=== PATIENT | male | born 2000 | race African-American/Black ===

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

== ENCOUNTER 2019-05-10 21:23 | Inpatient (IN) | payer OTHER ==
[~2019-05-10] VITALS: Ht 167.6 cm; Wt 79.7 kg
[2019-05-10 21:55] LABS: BASO % 0.3 % (0.0-1.0); EOS % 0.3 % (0.0-3.0); HEMATOCRIT 48.3 % (42.0-52.0); HEMOGLOBIN 16.3 g/dl (13.5-17.5); LYMPH # 1.6 10^3/uL (1.5-5.0); LYMPH % 18.7 % (24.0-44.0); MEAN CORPUSCULAR HEMOGLOBIN 29.7 pg (27.0-33.0); MEAN CORPUSCULAR HGB CONC 33.7 g/dl (32.0-36.5); MEAN CORPUSCULAR VOLUME 88.1 fl (80.0-96.0); MONO # 0.6 10^3/uL (0.0-0.8); MONO % 6.5 % (0.0-5.0); NEUTROPHILS # 6.4 10^3/uL (1.5-8.5); NEUTROPHILS % 73.9 % (36.0-66.0); PLATELET COUNT, AUTOMATED 223 10^3/uL (150-450); RED BLOOD COUNT 5.48 10^6/uL (4.30-6.10); WHITE BLOOD COUNT 8.6 10^3/uL (4.0-10.0)
[2019-05-10 22:28] LABS: ACETAMINOPHEN LEVEL 7.2 UG/ML (10.0-30.0); ALBUMIN 4.4 GM/DL (3.2-5.2); ALT/SGPT 33 U/L (12-78); BILIRUBIN,DIRECT 0.1 MG/DL (0.0-0.2); BILIRUBIN,TOTAL 0.3 MG/DL (0.2-1.0); BLOOD UREA NITROGEN 14 MG/DL (7-18); CALCIUM LEVEL 9.3 MG/DL (8.5-10.1); CARBON DIOXIDE LEVEL 32 MEQ/L (21-32); CHLORIDE LEVEL 101 MEQ/L (98-107); CPK CREATINE PHOSPHOKINASE 591 U/L (39-308); CREATININE FOR GFR 1.22 MG/DL (0.70-1.30); ETHYL ALCOHOL (ETHANOL) < 0.003 % (0.000-0.010); GLUCOSE, FASTING 137 MG/DL (70-100); POTASSIUM SERUM 3.8 MEQ/L (3.5-5.1); SALICYLATE LEVEL < 1.7 MG/DL (5.0-30.0); SODIUM LEVEL 141 MEQ/L (136-145); TOTAL PROTEIN 8.1 GM/DL (6.4-8.2)
[2019-05-10 23:12] LABS: AMPHETAMINES LEVEL URINE NEGATIVE (NEGATIVE); BARBITURATES URINE NEGATIVE (NEGATIVE); BENZODIAZEPINES URINE NEGATIVE (NEGATIVE); CANNABINOIDS URINE NEGATIVE (NEGATIVE); COCAINE METABOLITE URINE NEGATIVE (NEGATIVE); METHADONE URINE NEGATIVE (NEGATIVE); OPIATES URINE POSITIVE (NEGATIVE); PHENCYCLIDINE URINE NEGATIVE (NEGATIVE)
--- NOTE | 2019-05-11 01:11 | ECGEPIP ---
[facility] - ED Test Date: 2019-05-10 Pat Name: DEMARIO MERRITT Department: Room: - Gender: Male Floorperson: nurys : 2000 Requested By: Sesar Cross Order Number: [id number] Reading MD: Vladimir Millard Measurements Intervals [place] Rate: 53 P: MT: 0 QRS: 31 QRSD: 90 T: -8 QT: 381 QTc: 361 Interpretive Statements Sinus arrhythmia with bradycardia NONSPECIFIC T-WAVE ABNORMALITY Comparison tracing not on file Electronically Signed on 05-11-2019 1:11:10 EST by Vladimir Millard
[2019-05-11] MEDS ORDERED: ACETAMINOPHEN TAB 650MG DOSE (2X325MG) PO PRN (15:15)
[2019-05-11] MEDS ORDERED: MOM 30ML SUSPENSION UDC PO PRN (15:15)
[2019-05-11] MEDS ORDERED: traZODone 50 MG TAB PO PRN (15:15)
[2019-05-11] MEDS ORDERED: MAALOX 30 ML SUSP *UDC PO PRN (15:15)
[2019-05-11 16:13] VITALS: BP 120/80
[2019-05-12 07:03] VITALS: BP 132/68
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
[2019-05-12 16:12] VITALS: BP 132/70
[2019-05-13 06:35] VITALS: BP 122/92
--- NOTE | 2019-05-13 12:04 | MHIPNPDOC ---
[facility] Progress Note Vital Signs Vital Signs Date Time Temp Pulse Resp B/P (MAP) Pulse Ox O2 Delivery O2 Flow Rate FiO2 05/13/19 06:35 98.6 88 16 122/92 (102) Room Air 05/11/19 16:13 100 Current Medications Current Medications Medications (Trade) Dose Ordered Sig/Prasanth Route PRN Reason Start Time Stop Time Status Last Admin Dose Admin Acetaminophen (Tylenol Tab) 650 mg Q6HP PRN PO HEADACHE or DISCOMFORT 05/11/19 15:15 Al Hydrox/Mg Hydrox/Simethicone (Mylanta) 30 ml Q4HP PRN PO HEARTBURN/INDIGESTION 05/11/19 15:15 Home Med (Med Rec Complete!) ASDIRECTED XX 05/11/19 08:30 05/11/19 08:29 DC Magnesium Hydroxide (Milk Of Magnesia) 30 ml DAILYPRN PRN PO CONSTIPATION 05/11/19 15:15 Trazodone HCl (Desyrel) 50 mg QHSP PRN PO INSOMNIA 05/11/19 15:15 Allergies Coded Allergies: No Known Allergies (Unverified , 05/10/19) ANTONIA CHO DO May 13, 2019 12:04
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
[2019-05-13 16:42] VITALS: BP 131/80
[2019-05-14 06:12] VITALS: BP 118/78
== END 2019-05-14 08:30 | disposition home or self-care (01) | DRG 882 ==
LOC: M ED 21:23 → M ED INP 05-11 15:04 → M PSY 05-11 15:50
PROVIDERS: ADMIT Psychiatry & Neurology Psychiatry; ATTEND Psychiatry & Neurology Addiction Medicine
DX: F43.20 Adjustment disorder, unspecified (principal); F60.89 Other specific personality disorders

== ENCOUNTER 2020-06-24 15:11 | Emergency (ER) | payer OTHER ==
[~2020-06-24] VITALS: Ht 167.6 cm; Wt 91.1 kg
[2020-06-24 15:11] VITALS: BP 141/88
--- OUTSIDE RECORDS SUMMARY | 2020-06-24 15:18 | CCD ---
Author Author [facility] Organization [facility] Address Unknown Phone Unavailable Care Team Providers Care [place] Name Role Phone Skylar, D Angelo CONCRETE CURER Unavailable Unavailable Skylar, D Angelo CONCRETE CURER Unavailable Unavailable Skylar, D Angelo CONCRETE CURER Unavailable Unavailable Skylar, D Angelo CONCRETE CURER Unavailable Unavailable Skylar, D Angelo CONCRETE CURER Unavailable Unavailable Skylar, D Angelo CONCRETE CURER Unavailable Unavailable Skylar, D Angelo CONCRETE CURER Unavailable Unavailable Skylar, D Angelo CONCRETE CURER Unavailable Unavailable Skylar, D Angelo CONCRETE CURER Unavailable Unavailable Skylar, D Angelo CONCRETE CURER Unavailable Unavailable Skylar, D Angelo CONCRETE CURER Unavailable Unavailable Skylar, D Angelo CONCRETE CURER Unavailable Unavailable Skylar, D Angelo CONCRETE CURER Unavailable Unavailable Skylar, D Angelo CONCRETE CURER Unavailable Unavailable Skylar, D Angelo CONCRETE CURER Unavailable Unavailable Skylar, D Angelo CONCRETE CURER Unavailable Unavailable Skylar, D Angelo CONCRETE CURER Unavailable Unavailable Skylar, D Angelo CONCRETE CURER Unavailable Unavailable Skylar, D Angelo CONCRETE CURER Unavailable Unavailable Skylar, D Angelo CONCRETE CURER Unavailable Unavailable Skylar, D Angelo CONCRETE CURER Unavailable Unavailable Skylar, D Angelo CONCRETE CURER Unavailable Unavailable Skylar, D Angelo CONCRETE CURER Unavailable Unavailable Skylar, D Angelo CONCRETE CURER Unavailable Unavailable Skylar, D Angelo CONCRETE CURER Unavailable Unavailable Skylar, D Angelo CONCRETE CURER Unavailable Unavailable Skylar, D Angelo CONCRETE CURER Unavailable Unavailable Skylar, D Angelo CONCRETE CURER Unavailable Unavailable Skylar, D Angelo CONCRETE CURER Unavailable Unavailable Skylar, D Angelo CONCRETE CURER Unavailable Unavailable Skylar, D Angelo CONCRETE CURER Unavailable Unavailable Skylar, D Angelo CONCRETE CURER Unavailable Unavailable Skylar, D Angelo CONCRETE CURER Unavailable Unavailable Skylar, D Angelo CONCRETE CURER Unavailable Unavailable Skylar, D Angelo CONCRETE CURER Unavailable Unavailable Gutierrez, J Chris PA-C Unavailable Unavailable Gutierrez, J Chris PA-C Unavailable Unavailable Gutierrez, J Chris PA-C Unavailable Unavailable Gutierrez, J Chris PA-C Unavailable Unavailable Gutierrez, J Chris PA-C Unavailable Unavailable Gutierrez, J Chris PA-C Unavailable Unavailable Gutierrez, J Chris PA-C Unavailable Unavailable Gutierrez, J Chris PA-C Unavailable Unavailable Gutierrez, J Chris PA-C Unavailable Unavailable Gutierrez, J Chris PA-C Unavailable Unavailable Gutierrez, J Chris PA-C Unavailable Unavailable PARNES Z LOC Unavailable Unavailable PARNESLachelle LOC Unavailable Unavailable [facility]ARNES [facility] LOC Unavailable Unavailable [facility]ES [facility] LOC Unavailable Unavailable PARNES Z LOC Unavailable Unavailable PARNES Z LOC Unavailable Unavailable PARNES Z LOC Unavailable Unavailable PARNES Z LOC Unavailable Unavailable PARNES Z LOC Unavailable Unavailable PARNES Z LOC Unavailable Unavailable PARNES Z LOC Unavailable Unavailable PARNES Z LOC Unavailable Unavailable PARNES Z LOC Unavailable Unavailable PARNES Z LOC Unavailable Unavailable PARNES Z LOC Unavailable Unavailable PARNES Z LOC Unavailable Unavailable PARNES Z LOC Unavailable Unavailable PARNES Z LOC Unavailable Unavailable PARNES Z LOC Unavailable Unavailable PARNES Z LOC Unavailable Unavailable PARNES Z LOC Unavailable Unavailable PARNES Z LOC Unavailable Unavailable PARNES Z LOC Unavailable Unavailable PARNES Z LOC Unavailable Unavailable PARNES Z LOC Unavailable Unavailable PARNES Z LOC Unavailable Unavailable PARNES Z LOC Unavailable Unavailable PARNES Z LOC Unavailable Unavailable PARNES Z LOC Unavailable Unavailable PARNES Z LOC Unavailable Unavailable PARNES Z LOC Unavailable Unavailable PARNES Z LOC Unavailable Unavailable PARNES Z LOC Unavailable Unavailable PARNES Z LOC Unavailable Unavailable PARNES Z LOC Unavailable Unavailable PARNES Z LOC Unavailable Unavailable PARNES Z LOC Unavailable Unavailable [facility]ES [facility] LOC Unavailable Unavailable Ioana KATHLEEN MD Unavailable Unavailable Ioana KATHLEEN MD Unavailable Unavailable Ioana KATHLEEN MD Unavailable Unavailable Ioana KATHLEEN MD Unavailable Unavailable Ioana KATHLEEN MD Unavailable Unavailable FRANNIE, L CIRO MD Unavailable Unavailable FRANNIE, L CIRO MD Unavailable Unavailable FRANNIE, L CIRO MD Unavailable Unavailable FRANNIE, L CIRO MD Unavailable Unavailable FRANNIE, L CIRO MD Unavailable Unavailable FRANNIE, L CIRO MD Unavailable Unavailable FRANNIE, L CIRO MD Unavailable Unavailable FRANNIE, L CIRO MD Unavailable Unavailable FRANNIE, L CIRO MD Unavailable Unavailable FRANNIE, L CIRO MD Unavailable Unavailable FRANNIE, L CIRO MD Unavailable Unavailable FRANNIE, L CIRO MD Unavailable Unavailable FRANNIE, L CIRO MD Unavailable Unavailable FRANNIE, L CIRO MD Unavailable Unavailable FRANNIE, L CIRO MD Unavailable Unavailable FRANNIE, L CIRO MD Unavailable Unavailable FRANNIE, L CIRO MD Unavailable Unavailable FRANNIE, L CIRO MD Unavailable Unavailable Re-disclosure Warning The records that you are about to access may contain information from federally-assisted alcohol or drug abuse programs. If such information is present, then the following federally mandated warning applies: This information has been disclosed to you from records protected by federal confidentiality rules (42 CFR part 2). The federal rules prohibit you from making any further disclosure of this information unless further disclosure is expressly permitted by the written consent of the person to whom it pertains or as otherwise permitted by 42 CFR part 2. A general authorization for the release of medical or other information is NOT sufficient for this purpose. The Federal rules restrict any use of the information to criminally investigate or prosecute any alcohol or drug abuse patient.The records that you are about to access may contain highly sensitive health information, the redisclosure of which is protected by Article 27-F of the [place] Public [employer] law. If you continue you may have access to information: Regarding HIV / AIDS; Provided by facilities licensed or operated by the [place] Office of Mental Health; or Provided by the [place] Office for People With Developmental Disabilities. If such information is present, then the following [place] mandated warning applies: This information has been disclosed to you from confidential records which are protected by state law. State law prohibits you from making any further disclosure of this information without the specific written consent of the person to whom it pertains, or as otherwise permitted by law. Any unauthorized further disclosure in violation of state law may result in a fine or intermediate sentence or both. A general authorization for the release of medical or other information is NOT sufficient authorization for further disc losure. Allergies and Adverse Reactions Type Description Substance Reaction Status Data Source(s ) No Known Drug Allergies No Known Drug Allergies [facility] No Known Environmental Allergies No Known [facility] SHRIMP SHRIMP SWELLING [facility] Family History Family Member Name Family Member Gender Family Member Status Date o f Status Description Data Source(s) Unknown Male Problem [facility] ([facility]) Encounters Encounter Providers Location Date Indications Data Source(s ) Emergency Attender: Chris Whitley PA-C 07:34:18 AM EST - 06/23/2020 08:33:00 AM [facility] Patient discharged. Outpatient Attender: LOC JORDAN MD 020 12:53:09 PM EDT - 12/03/2019 06:00:00 AM EDT [facility] Patient discharged. Emergency Attender: CIRO KATHLEEN MD 2019 01:12:00 PM EDT - 10/31/2019 02:15:00 PM EDT [facility] Patient discharged. Outpatient Attender: Angelo Cheng NPAttender: LOC Canas 06/30/2019 02:45:00 PM [facility] - 06/30/2019 02:45:00 PM [facility] Insurance Providers Payer name Policy type / Coverage type Policy ID Covered alliance party ID Covered alliance party's relationship to santso Policy Santos Plan Information [facility] [employer] [id number] SP [id number] [facility] [employer] [place] [id number] 18 [id number] [place] [id number] 18 [id number] [facility] [id number] SP [id number] [facility] [id number] [facility] [id number] [facility] [id number] Self [id number] Problems, Conditions, and Diagnoses Code Display Name Description Problem Type Effective Dates Data Source(s) G4489 Other headache syndrome Other headache syndrome Diagno sis 12/02/2019 08:30:00 PM EDT [facility] G4761 Periodic limb movement disorder Periodic limb movement disorder Diagnosis 12/02/2019 08:30:00 PM EDT [facility] R0683 Snoring Snoring Diagnosis 12/02/2019 08:30:00 PM ED T [facility] R400 Somnolence Somnolence Diagnosis 12/02/2019 08:30:00 PM ED T [facility] K10145 Unspecified place in unspeci fied non-institutional (private) residence as the place of occurrence of the external cause Unspecified place in unspecified non-institutional (private) residence as the place of occurrence of the external cause Diagnosis 10/31/2019 01:12:00 PM EDT [facility] [id number] Overexertion from prolonged static or awkward postures, initial encounter Overexertion from prolonged static or aw kward postures, initial encounter Diagnosis 10/31/2019 01:12:00 PM EDT [facility] [id number] Sprain of tibiofibular ligament of left ankle, initial encounter Sprain of tibiofibular ligament of left ankle, initial encounter Diagnosis 10/31/2019 01:12:00 PM EDT [facility] [id number] Sprain of unspecified ligament of right ankle, initial encounter Sprain of unspecified ligament of right ankle, initial encounter Diagnosis 10/31/2019 01:12:00 PM EDT [facility] [id number] Unspecified injury of right ankle, initi al encounter Unspecified injury of right ankle, initial encounter Diagnosis 10/31/2019 01:12:00 PM EDT [facility] Z4789 Encounter for other orthopedic aftercare Encounter for other orthopedic aftercare Diagnosis 06/30/2019 02:45:00 PM EST [facility] Results ID Date Data Source [id number] 11/02/2019 08:55:00 AM EDT [facility] [address] [place] [address] PHONE: [phone] FAX: [phone] Name .................. : RENÉ Jensen Acct Number.................. : [id number] ROOM. ................. : TR-1A MR Number ................... : [id number] Stay type ............. : E/R Discharge Date......... ... : 10/31/19 Admit Date ....... .. : 10/31/19 Admit Phys .................... : COONEYNORM Date of ....... : 2000 Family Phys ................... : UNKNOWN Phone .................. : [phone] Age ................................ : 19 Film# .................. .:[id number] Sex ................................. : M Unsigned transcriptions are preliminary reports and do not represent a medical or legal document ANKLE COMPLETE RT [id number] COMPLETE:10/31/19 14:12 KBO [id number] Reason(s): Pain RIGHT ANKLE X-RAY: 4-VIEWS INDICATION: Pain. FINDINGS: Routine views show no fracture or dislocation. The right ankle mortise is normally maintained and the articular surfaces are smooth. The soft tissues are unremarkable. IMPRESSION: Negative right ankle. Electronically Reviewed and Signed By Steve Reynoso MD , 11/02/19 08:55, SHARATH Transcribe Initials: ADDIE , Transcribe Date: 10/31/19 16:33, Dictation Date: Copy for: GABRIEL SOLIS via fax Copy for: EMERGENCY DEPT via modem Copy for: 710 MED REC DISCHARGED Page 1 of 1 Name Value Range Interpretation Code Description Data Jasmin rce(s) Supporting Document(s) ID Date Data Source [id number] 10/31/2019 01:12:00 PM EDT [facility] 1 OrderSheet [facility] Emergency Department [address] [place] [address] Phone #: ext- [phone] 10/31/2019 13:07 Patient: DEMARIO MERRITT Sex: M : 2000 Age: 19yWEIGHT:86.1 kg (S) HEIGHT:67 inches (S) BMI:29.8ALLERGIES: Shellfish- derived ProductsCHIEF COMPLAINT: Rt, ankleDIAGNOSIS: Sprain of jointLAB ORDERSOrder Description Priority Entered Acknowledged InitialedDIAGNOSTIC STUDY ORDERSOrder Description Priority Entered Acknowledged InitialedAnkle Complete STAT 13:28 10/31/2019 Ack'd: 13:38 13:58 Right Amandeep Guzman Jennifer Jennifer R.N.(Oxygen?(No)) PA; R.N. Reason for Study: Pain, Trauma/InjuryMEDICATION/IV/DRIP/FLUID ORDERSOrder Description Priority Entered Acknowledged InitialedIbuprofen 800 mg 13:28 10/31/2019 13:38 Thomas,PO X1 dose: 800 Amandeep Lizama R.N.mg (NOW x1) PA;GENERAL ORDERSOrder Description Priority Entered Acknowledged InitialedSplint (Aircast) R 14:10 10/31/2019 14:19 Joy Guzman R.N. PA;Crutches 14:10 10/31/2019 Cancelled: Physician Order 14:20 Alda Mehta R.N. PA;[Electronically signed by Alda Guzman R.N. (14:21 10/31/2019)][Electronically signed by Amandeep Herrera (21:28 10/31/2019)][Electronically locked by Alda Guzman R.N. (14:21 10/31/2019)] Name Value Range Interpretation Code Description Data Jasmin rce(s) Supporting Document(s) ID Date Data Source [id number] 10/31/2019 01:12:00 PM EDT [facility] 1 Medication Reconciliation Report [facility] Emergency Department [address] [place] [address] Phone #: ext- [phone] 10/31/2019 13:07 Patient: DEMARIO MERRITT Sex: M : 2000 Age: 19yWeight: 86.1 kgHeight/Length: 67 in.BMI: 29.8ALLERGIES: Shellfish-derived ProductsThe patient's Home Medications are listed below:NONE.The source(s) of the original Home Medication information:Not obtained.The following Medications were given to the patient in the Emergency Department:Ibuprofen [PO] PO 800 mg, administered: 10/31/2019 1:38:00 PMThe following Medications were prescribed to the patient:None. Name Value Range Interpretation Code Description Data Jasmin rce(s) Supporting Document(s) ID Date Data Source [id number] 10/31/2019 01:12:00 PM EDT [facility] 1 Medication Administration Record [facility] Emergency Department [address] [place] [address] Phone #: ext- [phone] 10/31/2019 13:07 Patient: DEMARIO MERRITT Sex: M : 2000 Age: 19yWeight: 86.1 kgHeight/Length: 67 inBMI: 29.8ALLERGIES: Shellfish-derived Products Date/Time Medication Administered Medication OrderedGiven IBUPROFEN [PO] Ibuprofen 800 mg PO X1 dose: 72371:38 10/31/2019 Dose: 800 mg Tablets PO mg (NOW x1)Alda Guzman R.N. Name Value Range Interpretation Code Description Data Jasmin rce(s) Supporting Document(s) ID Date Data Source [id number] 10/31/2019 01:12:00 PM EDT [facility] 1 General Instructions [facility] Emergency Department [address] [place] [address] Phone #: ext [phone] 10/31/2019 13:07 Patient: DEMARIO MERRITT Sex: M : 2000 Age: 19ySprain of the anterior and posterior talo-fibular ligament of the right ankle.INSTRUCTIONSUse crutches for three days until better. Wear air splint for two weeks until better.(Take 800mg of Ibuprofen three times per day for pain relief.).Your Current Medications: .No home me dication.Follow-up:Follow up with your doctor Saturday. Reason for referral: evaluation and treatment. Summary of careprovided to patient.Understanding of the discharge instructions verbalized by patient. ADDITIONAL INFORMATIONAnkle Sprain (Adult)An ankle sprain is a stretching or tearing of the ligaments that hold the ankle joint together. There are 2 General Instructions [facility] Emergency Department [address] [place] [address] Phone #: ext [phone] 10/31/2019 13:07 Patient: DEMARIO MERRITT Sex: M : 2000 Age: 19yno broken bones.An ankle sprain is a common injury for both children and adults. It happens when the ankle turns,twists, or rolls in an awkward way. This can be caused by a sports injury. Or it can happen from doingsomething as simple as stepping on an uneven surface.Ligaments are made of tough connective tissue. Normally, ligaments stretch a certain amount andthen go back to their normal place. A sprain happens when a ligament is forced to stretch more thanthe normal amount. A severe sprain can actually tear the ligaments. If you have a severe sprain, youmay have felt or heard something like a pop when you were injured.Ankle sprains are given a grade depending on whether they are mild, moderate, or severe: Grade 1 sprain. A mild sprain with minor stretching and damage to the ligament. Grade 2 sprain. A moderate sprain where the ligament is partly torn. Grade 3 sprain. The most severe kind of sprain. The ligament is completely torn.Most sprains take about 4 to 6 weeks to heal. A severe sprain can take several months to recover.Your healthcare provider may order X-rays to be sure you don't have a fracture, or broken bone.The injured area will feel sore. Swelling and pain may make it hard to walk. You may need crutches ifwalking is painful. Or your provider may have you use a cast boot or air s plint. This will depend on thegrade of ankle sprain that you have.Home care For a Grade 1 sprain, use RICE (rest, ice, compression, and elevation): Rest your ankle. Don't walk on it. Ice should be used right away to help control swelling. Place an ice pack over the injured area for 20 minutes. Do this every 3 to 6 hours for the first 24 to 48 hours. Keep using ice packs to ease pain and swelling as needed. To make an ice pack, put ice cubes in a plastic bag that seals at the top. Wrap the bag in a clean, thin towel or cloth. Never put ice or an ice pack directly on the skin. The ice pack can be put right on the cast, bandage, or splint. As the ice melts, be careful that the cast, bandage, or splint doesn't get wet. If you have a boot, open it to apply an ice pack, unless told otherwise by your provider. Compression devices help to control swelling. They also keep the ankle from moving and support your injured ankle. These devices include dressings, bandages, and w raps. Elevate or raise your ankle above the level of your heart when sitting or lying down. This is very important for the first 48 hours. 3 General Instructions [facility] Emergency Department [address] [place] [address] Phone #: ext- [phone] 10/31/2019 13:07 [id number] Sex: M : 2000 Age: 19y Follow the RICE guidelines for a Grade 2 sprain. This type of sprain will take longer to heal. Your provider may have you wear a splint, cast, or brace to keep your ankle from moving. If you have a Grade 3 sprain, you are at risk for long-term ankle instability. In rare cases, surgery may be needed. Your provider may have you wear a short leg cast or a walking boot for 2 to 3 weeks. After 48 hours, it may be helpful to apply heat for 20 minutes several times a day. You can do this with a heating pad or warm compress. Or you may want to go back and forth between using ice and heat. Never apply heat directly to the skin. Always wrap the heating pad or warm compress in a clean, thin towel or cloth. You may use [id number] pain medicine (NSAIDS or nonsteroidal anti-inflammatory drugs) to control pain, unless another pain medicine was prescribed. Talk with your provider before using these medicines if you have chronic liver or kidney disease, or have ever had a stomach ulcer or gastrointestinal bleeding. Follow any rehabilitation exercises your provider gives you. These can help you be more flexible and improve your balance and coordination. This is helpful in preventing long-term ankle problems.PreventionTo help prevent ankle sprains, it's important to have good strength, balance, and flexibility. Be sureto: Always warm up before you exercise or do something very active Be careful when walking or running on uneven or cracked surfaces Wear shoes that are in good condition and fit well Listen to your body's signals to slow down when you are in pain or tiredFollow-up careAny X-rays you had today don't show any broken bones, breaks, or fractures. Sometimes fracturesdon't show up on the first X-ray. Bruises and sprains can sometimes hurt as much as a fracture.These injuries can take time to heal completely. If your symptoms don't get better or they get worse,talk with your healthcare provider. You may need a repeat X-ray.Follow up with your healthcare provider, or as advised. Check for any warning signs listed below.When to seek medical adviceCall your healthcare provider right away if any of these occur: 4 General Instructions [facility] Emergency Department [address] [place] [address] Phone #: ext- [phone] 10/31/2019 13:07 Patient: DEMARIO MERRITT Sex: M : 2000 Age: 19y Fever of 100.4 F (38 C) or higher, or as directed by your healthcare provider Chills The injury doesn't seem to be healing The swelling comes back The cast or splint has a bad smell The plaster cast or splint gets wet or soft The fiberglass cast or splint gets wet and does not dry for 24 hours The pain or swelling increases, or redness appears Your toes become cold, blue, numb, or tingly The skin is discolored (looks blue, purple, or gill), has blisters, or is irritated You re-injure your ankle [id number] [employer] [address] [place] [address], [place] [address]. All rights reserved. This information is not intended as asubstitute for professional medical care. Always follow your healthcare professional's instructions.Crutch WalkingCrutch adjustment 5 General Instructions [facility] Emergency Department [address] [place] [address] Phone #: ext- [phone] 10/31/2019 13:07 Patient: DEMARIO MERRITT Sex: M : 2000 Age: 19y Make sure the crutches you use are adjusted to fit you. When you stand,there should be room to fit 2 to 3 fingers between the top of the crutch and your armpit. Your elbowshould be slightly bent when holding the hand navy material inspector. When your arms hang down, the crutch handleshould be at the top of your hip.Crutch walkingPlace the crutches forward about 1 foot in front of you. The crutches should be a little farther apartthan your body. Lean your weight forward as you push down on the hand navy material inspector. Make sure yourweight is on your hands and your strong leg, not your armpits. Let your body swing forward, landingon the strong leg. Move the crutches forward again. The crutch and your injured leg should movetogether.Going up steps with no handrails(Up with the good leg) With both crutches (under each armpit) on the same step as your feet, push down on the hand navy material inspector. 6 General Instructions [facility] Emergency Department [address] [place] [address] Phone #: ext- [phone] 10/31/2019 13:07 Patient: DEMARIO MERRITT Sex: M : 2000 Age: 19y Balancing with very light pressure on the weak leg, let your hands support your weight. Raise your strong leg onto the next higher step. Transfer all your weight to your strong leg (still bent). Move the crutches up to the next step, next to your strong leg. Keep your weight evenly balanced on the two crutches and your strong leg. Straighten your strong knee as you raise your weak leg up to the next step.Going down steps with no handrails(Down with the bad leg) With both crutches (under each armpit) on the same step as your feet, push down on the hand navy material inspector. Keep your weight evenly balanced on the two crutches and your strong leg. Bend your strong knee as you lower your weak leg down to the next step. Let your strong leg s upport you (still bent) as you move the crutches down next to the weak leg. Transfer your weight to your hands. Balance with very light pressure on your weak leg as you lower your strong leg next to your weak legGoing up steps with handrails(Up with the good leg) Face the stairs, holding the handrail with one hand. Place both crutches under your armpit on the opposite side. 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 Balancing with very light pressure on the weak leg, let your hands support your weight. Raise your strong leg onto the next higher step. Transfer all your weight to your strong leg (still bent) as you move the crutches up (while holding on to the handrail) to the next step next to the strong leg. Keep your weight evenly balanced on the handrail, the crutches (still under the same armpit opposite the handrail), and your strong leg. Straighten your strong knee as you raise the weak leg up to the next step.Going down steps with handrails(Down with the bad leg) Face the stairs, holding the handrail with one hand. Place both crutches under your armpit on 7 General Instructions [facility] Emergency Department [address] [place] [address] Phone #: ext- [phone] 10/31/2019 13:07 Patient: DEMARIO MERRITT Sex: M : 2000 Age: 19y the opposite side. 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 Balance your weight evenly on the crutches, handrail, and your strong leg. Then bend your strong knee as you lower the weak leg down to the next step. Let the handrail and your strong leg support you (still bent) as you move the crutches down alongside the weak leg. While holding on to the handrail and crutches (under the same armpit on the other side), transfer your weight to your hands, balancing with very light pressure on the weak leg as you lower your strong leg alongside your weak legTip: If you are worried about falling or you feel unsteady, try sitting when going up or down stairsinstead. Sit on the bottom step and keep your injured leg out in front of you. Hold your crutches flatagainst the stairs. Then slide up to the next step on your bottom. Use your free hand and good leg forsupport. Face the same way when going down stairs. 7675-4278 [employer] [address] [place] [address]. All rights reserved. This information is not intended as asubstitute for professional medical care. Always follow your healthcare professional's instructions.Splints and CastsSplints and casts are used to help support and protect many bone and soft tissue injuries. They keepan injured area from moving.Both splints and casts can help fix broken bones and other injuries or conditions by: Increasing blood supply to the injured area Limiting movement to help decrease pain Keeping the area stable to help prevent further injury Decreasing swelling or muscle spasmSplints don't fully enclose an injured area. This makes them ideal to use for many acute or suddeninjuries where swelling is likely to occur. This includes acute fractures or sprains. Splints help to easepain, protect fractures, and keep an injured area from moving before any orthopedic treatment isdone.Casts fully enclose an injured area in either plaster or fiberglass. Because of this, they are better ableto keep the injured area still and hold it in place. But casts can also have more problems.For the best results, both casts and splints are mainly used only for a short time. That's becausekeeping an area still for too long can cause problems such as joint stiffness and long-lasting (chronic)pain. If you are put in a splint or cast, you must be watched closely to be sure you recover correctly. 8 General Instructions [facility] Emergency Department [address] [place] [address] Phone #: ext- [phone] 10/31/2019 13:07 Patient: DEMARIO MERRITT Sex: M : 2000 Age: 19yThere are many different kinds of splints and casts. Your healthcare provider will decide which is bestfor you. This will depend on the area of your body that is being treated. It will also depend on thestage of your injury, as well as how severe and how stable it is. Each type of splint and cast is bestsuited for certain conditions. There are also different ways of applying splints and casts.Home care Follow your healthcare provider's instructions when using the splint or cast. Always ask when the splint or cast must be worn. Always ask when the splint or cast can be removed. Check the splint or cast each day, and as needed, for any loose objects. Check the splint or cast for defects such as nicks or tears. Follow the rock crusher's or provider's instructions on how to clean the splint or cast. It may have fabric areas that can be washed. If the splint or cast has straps, tighten the straps if they get loose. The straps should feel firm and secure, but not too tight. The splint or cast should feel comfortable. Your toes should wiggle freely. The provider may also use an elastic bandage. Follow the provider's instructions on how to use the elastic bandage. Always ask when to use the elastic bandage with, or without, the splint or cast. Always ask when the elastic bandage needs to be worn. Always ask when the elastic bandage needs to be removed. Check how the injured area is healing. Always check the skin around the injury for irritation or damage caused by the splint or cast. Call your provider if you notice any problems or have any concerns. If you have any questions on how to use the splint or cast, contact your provider.Follow-up careFollow up as advised with your healthcare provider. Depending on the injury, you may need to see anorthopedic or bone doctor. You may also need physical therapy to further check or treat your injury orcondition.When to seek medical adviceCall your healthcare provider right away if any of these occur: You have more pain, swelling, or instability when wearing the splint or cast. Your injured area has skin that changes color (to red, blue, or purple), sores, blisters, infection, or irritation. 9 General Instructions [facility] Emergency Department [address] [place] [address] Phone #: koi- [phone] 10/31/2019 13:07 Patient: DEMARIO MERRITT Sex: M : 2000 Age: 19y The injured region feels cool to the touch. Or you have a numb and tingly feeling when wearing the splint or cast. The splint or cast does not fit correctly. You can't put weight on the injured area when wearing the splint or cast if you are allowed to do so. You have questions about using the splint or cast. The splint or cast gets wet. 4717-5[address] [employer] [address] [place] [address], [place] [address]. All rights reserved. This information is not intended as asubstitute for professional medical care. Always follow your healthcare professional's instructions. You have been given the following additional information: Ankle Sprain (Adult) Crutch Walking Splints and Casts(Electronically signed by CHELSEA Raymond 10/31/2019 21:28) Name Value Range Interpretation Code Description Data Jasmin rce(s) Supporting Document(s) ID Date Data Source [id number] 10/31/2019 01:12:00 PM EDT [facility] 1 Clinical Report - Nurses [facility] Emergency Department [address] [place] [address] Phone #: ext- [phone] 10/31/2019 13:07 Patient: DEMARIO MERRITT Sex: M : 2000 Age: 19yTRIAGEHistorian: patient.Triage time: 13:11 10/31/2019. Acuity: LEVEL 4.Chief Complaint: RIGHT LOWER EXTREMITY PAIN.Alert. No acute distress.( pt states he was walking down steps today, missed one and landed on the next step down and felt a pop.pt c/o pain with weight bearing.).SEPSIS SCREEN: Sepsis Screen negative. No suspected or confirmed signs of infection present. --13:146 Jyoti August, R.N.13:11 10/31/19. BP: 137/67. MAP: 90. HR: 76. RR: 18. O2 saturation: 96%. Temp: 98.1 F (oral). Painlevel now: 09/03. --13:14 10/31/19 Jyoti, August, R.N.Weight: 86.1 kg stated. Height/Length: 67 inches Per Patient. BMI: 29.8. --13:09 10/31/19 Jyoti, August, R.N.MedicationsNone. --13: 11 10/31/19August, R.N.AllergiesShellfish-derived Products. --13:11 10/31/19 Jenyaugust, R.N.PROBLEMS:no known problems.ADDITIONAL SURGERIES:Shoulder Surgery (Rajat). --13:12 10/31/19 Jyoti August, R.N.HistorySOCIAL HX: Never smoker. No alcohol use or drug use. He was offered HIV testing but declined. Hehas not traveled outside the [place]Infectious disease exposure: No infectious disease exposure. (covid screen neg). Patient is not a knowncarrier of tuberculosis, hepatitis, HIV, MRSA or VRE. Patient is not a known carrier of CRE.SELF HARM ASSESSMENT: Self harm assessment was performed. The patient answered "no" to thequestion(s) "Have you recently felt down, depressed, or hopeless?", "Do you have thoughts of harming orkilling yourself?", "Do you have a plan for harming or killing yourself?", "Have you recently had thoughtsabout harming or killing others?", "Do you have any dangerous items in your possession?", "Have younoticed less interest or pleasure in doing things?", "Are you here because you tried to hurt yourself?" and 2 Clinical Report - Nurses [facility] Emergency Department [address] [place] [address] Phone #: ext- [phone] 10/31/2019 13:07 Patient: DEMARIO MERRITT Sex: M : 2000 Age: 19y "Have you ever tried to hurt yourself before today?". ABUSE ASSESSMENT: Abuse assessment. yes. The patient had positive responses to the question(s) "Do you feel safe in your home?". No report of abuse. NUTRITIONAL RISK ASSESSMENT: The nutritional risk assessment revealed no deficiencies. FUNCTIONAL ASSESSMENT: Functional assessment: no impairments noted. LEARNING NEEDS ASSESSMENT: The learning needs assessment revealed no barriers. FALL RISK ASSESSMENT: Fall risk assessment completed. No risk factors identified. SKIN INTEGRITY ASSESSMENT: Skin integrity risk assessment completed. No skin integrity risk identified. --13:14 10/31/19 Claudine Montes, R.N. Interventions To treatment room. --13:14 10/31/19 Claudine Montes, R.N.PHYSICAL ASSESSMENTTo room via wheelchair.GENERAL / NEURO / PSYCH: Oriented X 4. Alert. Appears in no acute distress.EXTREMITIES: Limited ROM present. Extremity pulses are within normal limits. Abnormal gait.Neuro- vascular status intact to the extremity. No lower extremity edema. Right ankle: tenderness.Limited ROM secondary to pain (diminished plantar flexion and dorsiflexion).SKIN: Skin intact. Skin is warm and dry. --13:24 10/31/19 Alda Guzman R.N.NURSING PROGRESS NOTESCold pack applied. Reassurance given. Two patient identifiers checked. Bed placed in lowest position.Brakes of bed on. Patient ready for evaluation- ED physician and PA notified. ( no meds SEWING MACHINE OPERATOR PLASTIC ZIPPER). --13:156 Jyoti, AugustJeannette 13:38 10/31/2019 Ibuprofen PO Tablets 800 mg given. Allergies verified and confirmed 5 rights. Information reviewed with patient including reason for taking this medication, signs of allergic reaction and precautions. Verbalizes understanding. --13:38 10/31/19 Alda Guzman R.N. Patient transported to radiology by wheelchair with quality control technician. --13:58 10/31/19 Alda Guzman R.N. Patient returned from radiology by wheelchair with quality control technician. --14:05 10/31/19 Alda Guzman R.N. The patient reports no complaints and he is calm and resting quietly. Patient waiting for radiology results. --14:05 10/31/19 Alda Guzman R.N. late entry - 14:15 10/31/19. Medium air splint applied to right ankle. Distal pulses intact, sensation intact 3 Clinical Report - Nurses [facility] Emergency Department [address] [place] [address] Phone #: ext- [phone] 10/31/2019 13:07 Patient: DEMARIO MERRITT Sex: M : 2000 Age: 19y and motor within normal limits. Splinting applied by me (Pt verbalized understanding of CSM checks). --14:20 10/31/19 Alda Guzman R.N. 14:18 10/31/2019 Ibuprofen PO Response: no adverse reaction pain is improving. Symptoms have improved the patient feels better. --14:20 10/31/19 Alda Guzman R.N.DISPOSITION / DISCHARGE 14:17 10/31/19. BP: 123/63. HR: 88. RR: 17. O2 saturation: 99%. Temp: 98.5 F. Pain level now 08/03. --14:17 10/31/19 [place] private detective, Leonidas, ER Tech1 Departure time: late entry - 14:15 10/31/2019. Condition at departure: stable. ( Pt refused crutches). No learning barriers present. Discharge instructions provided and reviewed with the patient. Reviewed warnings (please see paper copy). Reviewed splint care instructions. Patient verbalized understanding. Written instructions provided in Marshallese. The patient was discharged by the physician assistant housekeeping manager. He was discharged home and accompanied by tobacco stripper. He left ambulatory and via private vehicle. Patient driving. --14:21 10/31/19 Alda Guzman R.N.Locked/Released at 10/31/2019 14:21 by Alda Guzman R.N. Name Value Range Interpretation Code Description Data Jasmin rce(s) Supporting Document(s) ID Date Data Source [id number] 10/31/2019 01:12:00 PM EDT [facility] 1 Clinical Report - Physicians/Mid Levels [facility] Emergency Department [address] [place] [address] Phone #: ext- [phone] 10/31/2019 13:07 [id number] Sex: M : 2000 Age: 19y Time Seen: 13:25 10/31/2019. Arrived- By private vehicle. Historian- patient.HISTORY OF PRESENT ILLNESS Chief Complaint: Injury to the right ankle. The injury happened today. The patient sustained a twisting injury. Occurred at home. ( pt states he was walking down steps today, missed one and landed on the next step down and felt a pop. pt c/o pain with weight bearing.). Patient is experiencing mild pain. No injury to the head or neck or other injury.REVIEW OF SYSTEMSThe patient complains of pain on weight bearing. He has had swelling. No tingling, weakness,numbness, suspected foreign body or skin laceration.PAST HISTORYProblems:no known problems. Additional Surgeries: Shoulder Surgery. Medications: None. Allergies: Shellfish-derived Products.SOCIAL HISTORYNever smoker. No alcohol use or drug use.PHYSICAL EXAMVital Signs: 10/31/2019 13:11 BP: 137/67. MAP: 90. HR: 76. RR: 18. O2 saturation: 96%. Temp: 98.1 F.Pain level now: 4/10. Have been reviewed as normal. Oxygen saturation normal.Appearance: Alert. Oriented X3. No acute distress.Head: Head atraumatic.Eyes: Pupils equal, round and reactive to light. Eyes normal inspection.ENT: Ears normal. Nose normal. Pharynx normal.Neck: Normal inspection.CVS: Normal heart rate.Respiratory: No respiratory distress.Abdomen: No visible injury. 2 Clinical Report - Physicians/[facility] Emergency Department [address] [place] [address] Phone #: ext- [phone] 10/31/2019 13:07 Patient: DEMARIO MERRITT Sex: M : 2000 Age: 19y Back: Normal inspection. Skin: Skin intact. Skin warm and dry. Extremities: Right lateral ankle: mild tenderness of the lateral ligaments, particularly the anterior talofibular ligament, calcaneofibular ligament and posterior talofibular ligament and lateral malleolus. Limited ROM secondary to pain. Neurovascular intact distally. No ligamentous laxity present. No joint effusion. Extremities otherwise negative. Neuro, Vascular and Tendons: Vascular status intact. Sensation intact. Motor intact. Tendon function intact. Gait: Limping gait. Neuro: Oriented X 3.LABS, X-RAYS, AND EKGRt Ankle X-ray: No fracture. Views: AP, lateral, mortise and oblique. The X-rays were interpreted by theradiologist and contemporaneously by me. Interpretation time: 14:10/31/2019.PROGRESS AND PROCEDURESCourse of Care: 14:Oct 31 2019. Evaluation after observation. (Discussed risks, benefits, options andpt is agreeable with dx and tx plan.). Patient counseled in person regarding the patient's stable condition, test results, diagnosis and need for follow-up. Patient agrees with plan of care. 14:Oct 31 2019. Disposition: Discharged home in good and improved condition (14:Oct 31 2019).CLINICAL IMPRESSION Sprain of the anterior and posterior talo-fibular ligament of the right ankle.INSTRUCTIONS Use crutches for three days until better. Wear air splint for two weeks until better. (Take 800mg of Ibuprofen three times per day for pain relief.). Your Current Medications: . No home medication. Follow-up: Follow up with your doctor Saturday. Reason for referral: evaluation and treatment. Summary of care provided to patient. Understanding of the discharge instructions verbalized by patient. 3 Clinical Report - Physicians/Mid Levels [facility] Emergency Department [address] [place] [address] Phone #: ext- [phone] 10/31/2019 13:07 Patient: DEMARIO MERRITT Sex: M : 2000 Age: 19y(Electronically signed by CHELSEA Raymond 10/31/2019 21:28) Name Value Range Interpretation Code Description Data Jasmin rce(s) Supporting Document(s) Procedure
[2020-06-24] MEDS ORDERED: IBUP80TA (15:24)
[2020-06-24] MEDS ORDERED: OMEP-218 (15:24)
[2020-06-24] MEDS ORDERED: LIDO1ADH20 (15:24)
[2020-06-24] MEDS ORDERED: BUSP5TA (15:24)
[2020-06-24] MEDS ORDERED: CYCL-707 (15:24)
[2020-06-24] MEDS ORDERED: predniSONE 20 MG TAB PO ONE (16:00)
[2020-06-24] MEDS ORDERED: PRED20TA PO (16:02)
[2020-06-24] MEDS ORDERED: ROBA750T4 PO (16:02)
--- OUTSIDE RECORDS SUMMARY | 2020-06-24 16:10 | CCD ---
Author Author [facility] Organization [facility] Address Unknown Phone Unavailable Support Name Relationship Address Phone BUSHRASALBADOR FELICIANO [place] [id number] [place] [address] SAMEER MERRITT Next Of [place] [id number] [place] [address] ZORA MERRITT Next Of Kin [address] [place] [address] [facility] Next Of Kin [address] [place] [address] [place] [address] Unavailable Care Team Providers Care [employer] Consultant Name Role Phone Skylar, D Angelo SECURITY COMPLIANCE SPECIALIST Unavailable Unavailable Skylar, D Angelo SECURITY COMPLIANCE SPECIALIST Unavailable Unavailable Skylar, D Angelo SECURITY COMPLIANCE SPECIALIST Unavailable Unavailable Skylar, D Angelo SECURITY COMPLIANCE SPECIALIST Unavailable Unavailable Skylar, D Angelo SECURITY COMPLIANCE SPECIALIST Unavailable Unavailable Skylar, D Angelo SECURITY COMPLIANCE SPECIALIST Unavailable Unavailable Skylar, D Angelo SECURITY COMPLIANCE SPECIALIST Unavailable Unavailable Skylar, D Angelo SECURITY COMPLIANCE SPECIALIST Unavailable Unavailable Skylar, D Angelo SECURITY COMPLIANCE SPECIALIST Unavailable Unavailable Skylar, D Angelo SECURITY COMPLIANCE SPECIALIST Unavailable Unavailable Skylar, D Angelo SECURITY COMPLIANCE SPECIALIST Unavailable Unavailable Skylar, D Angelo SECURITY COMPLIANCE SPECIALIST Unavailable Unavailable Skylar, D Angelo SECURITY COMPLIANCE SPECIALIST Unavailable Unavailable Skylar, D Angelo SECURITY COMPLIANCE SPECIALIST Unavailable Unavailable Skylar, D Angelo SECURITY COMPLIANCE SPECIALIST Unavailable Unavailable Skylar, D Angelo SECURITY COMPLIANCE SPECIALIST Unavailable Unavailable Skylar, D Angelo SECURITY COMPLIANCE SPECIALIST Unavailable Unavailable Skylar, D Angelo SECURITY COMPLIANCE SPECIALIST Unavailable Unavailable Skylar, D Angelo SECURITY COMPLIANCE SPECIALIST Unavailable Unavailable Skylar, D Angelo SECURITY COMPLIANCE SPECIALIST Unavailable Unavailable Skylar, D Angelo SECURITY COMPLIANCE SPECIALIST Unavailable Unavailable Skylar, D Angelo SECURITY COMPLIANCE SPECIALIST Unavailable Unavailable Skylar, D Angelo SECURITY COMPLIANCE SPECIALIST Unavailable Unavailable Skylar, D Angelo SECURITY COMPLIANCE SPECIALIST Unavailable Unavailable Skylar, D Angelo SECURITY COMPLIANCE SPECIALIST Unavailable Unavailable Skylar, D Angelo SECURITY COMPLIANCE SPECIALIST Unavailable Unavailable Skylar, D Angelo SECURITY COMPLIANCE SPECIALIST Unavailable Unavailable Skylar, D Angelo SECURITY COMPLIANCE SPECIALIST Unavailable Unavailable Skylar, D Angelo SECURITY COMPLIANCE SPECIALIST Unavailable Unavailable Skylar, D Angelo SECURITY COMPLIANCE SPECIALIST Unavailable Unavailable Skylar, D Angelo SECURITY COMPLIANCE SPECIALIST Unavailable Unavailable Skylar, D Angelo SECURITY COMPLIANCE SPECIALIST Unavailable Unavailable Skylar, D Angelo SECURITY COMPLIANCE SPECIALIST Unavailable Unavailable Skylar, D Angelo SECURITY COMPLIANCE SPECIALIST Unavailable Unavailable Skylar, D Angelo SECURITY COMPLIANCE SPECIALIST Unavailable Unavailable Gutierrez, J Chris PA-C Unavailable [...] Unavailable Gutierrez, J Chris PA-C Unavailable Unavailable PARNES, Z LOC Unavailable Unavailable PARNES, Z LOC MD Unavailable Unavailable PARNES, Z LOC MD Unavailable Unavailable PARNES, Z LOC MD Unavailable Unavailable PARNES, Z LOC MD Unavailable Unavailable PARNES, Z LOC MD Unavailable Unavailable PARNES, Z LOC MD Unavailable Unavailable PARNES, Z LOC MD Unavailable Unavailable PARNES, Z LOC MD Unavailable Unavailable PARNES, Z LOC MD Unavailable Unavailable PARNES, Z LOC MD Unavailable Unavailable PARNES, Z LOC MD Unavailable Unavailable PARNES, Z LOC MD Unavailable Unavailable PARNES, Z LOC MD Unavailable Unavailable PARNES, Z LOC MD Unavailable Unavailable PARNES, Z LOC MD Unavailable Unavailable PARNES, Z LOC MD Unavailable Unavailable PARNES, Z LOC MD Unavailable Unavailable PARNES, Z LOC MD Unavailable Unavailable PARNES, Z LOC MD Unavailable Unavailable PARNES, Z LOC MD Unavailable Unavailable PARNES, Z LOC MD Unavailable Unavailable PARNES, Z LOC MD Unavailable Unavailable PARNES, Z LOC MD Unavailable Unavailable PARNES, Z LOC MD Unavailable Unavailable PARNES Z LOC MD Unavailable Unavailable PARNES, Z LOC MD Unavailable Unavailable PARNES Z LOC MD Unavailable Unavailable PARNES, Z LOC MD Unavailable Unavailable PARNES, Z LOC MD Unavailable Unavailable PARNES, Z LOC MD Unavailable Unavailable PARNES, Z LOC MD Unavailable Unavailable PARNES, Z LOC MD Unavailable Unavailable PARNES, Z LOC MD Unavailable Unavailable PARNES, Z LOC MD Unavailable Unavailable PARNES, Z LOC MD Unavailable Unavailable PARNES, Z LOC MD Unavailable Unavailable PARNES, Z LOC Unavailable Unavailable Ioana KATHLEEN MD [...] is protected by Article 27-F of the [facility] Public Health law. If you continue you may have access to information: Regarding HIV / AIDS; Provided by facilities licensed or operated by the [facility] Office of Mental Health; or Provided by the [facility] Office for People With Developmental Disabilities. If such information is present, then the following [facility] mandated warning applies: This information has been [...] law may result in a fine or chcf sentence or both. A general authorization for the release of medical or other information is NOT sufficient authorization for further disc losure. Allergies and Adverse Reactions Type Description Substance Reaction Status Data Source(s ) No Known Drug Allergies No Known Drug Allergies [facility] No Known Environmental Allergies No Known Environmental [facility] Food allergy SHRIMP SHRIMP SWELLING [facility] Family History Family Member Name Family Member Gender Family Member Status Date o f Status Description Data Source(s) Unknown Male Problem [facility] ([facility]) Encounters Encounter Providers Location Date Indications Data Source(s ) Emergency Attender: Chris Whitley PA-C 07:34:18 AM EST - 06/23/2020 08:33:00 AM [facility] Patient discharged. Outpatient Attender: LOC JORDAN MD 12:53:09 PM EDT - 12/03/2019 06:00:00 AM EDT [facility] Patient discharged. Emergency Attender: CIRO KATHLEEN MD 2019 01:12:00 PM EDT - 10/31/2019 02:15:00 PM EDT [facility] Patient discharged. Outpatient Attender: Angelo Cheng NPAttender: LOC Canas 06/30/2019 02:45:00 PM [facility] - 06/30/2019 02:45:00 PM [facility] Insurance Providers Payer name Policy type / Coverage type Policy ID Covered libertarian ID Covered libertarian's relationship to santos Policy Santos Plan Information [employer] [id number] SP [id number] [facility] [employer] [place] [id number] 18 [id number] [facility] [place] [id number] 18 [id number] [facility] [employer] [id number] SP [id number] [facility] [id number] 18 [id number] [facility] [id number] Self [id number] Problems, Conditions, and Diagnoses Code Display Name Description Problem Type Effective Dates Data Source(s) G4489 Other headache syndrome Other headache syndrome Diagno sis 12/02/2019 08:30:00 PM EDT [facility] G4761 Periodic limb movement disorder Periodic limb movement disorder Diagnosis 12/02/2019 08:30:00 PM EDT [facility] R0683 Snoring Snoring Diagnosis 12/02/2019 08:30:00 PM ED T [facility] R400 Somnolence Somnolence Diagnosis 12/02/2019 08:30:00 PM ED T [facility] S18125 Unspecified place in unspeci fied non-institutional (private) residence as the place of occurrence of the external cause Unspecified place in unspecified non-institutional (private) residence as the place of occurrence of the external cause Diagnosis 10/31/2019 01:12:00 PM EDT [facility] [id number] Overexertion from prolonged static or awkward postures, initial encounter Overexertion from prolonged static or aw kward postures, initial encounter Diagnosis 10/31/2019 01:12:00 PM EDT [facility] [id number] Sprain of tibiofibular ligament of left ankle, initial encounter Sprain of tibiofibular ligament of left ankle, initial encounter Diagnosis 10/31/2019 01:12:00 PM EDT [facility] [id number] Sprain of unspecified ligament of right ankle, initial encounter Sprain of unspecified ligament of right ankle, initial encounter Diagnosis 10/31/2019 01:12:00 PM EDT [facility] [id number] Unspecified injury of right ankle, initi al encounter Unspecified injury of right ankle, initial encounter Diagnosis 10/31/2019 01:12:00 PM EDT [facility] Z4789 Encounter for other orthopedic aftercare Encounter for other orthopedic aftercare Diagnosis 06/30/2019 02:45:00 PM EST [facility] Results ID Date Data Source [id number] 11/02/2019 08:55:00 AM EDT [facility] [address] [place] [address] PHONE: [phone] FAX: [phone] Name .................. : RENÉ Jensen Acct Number.................. : [id number] ROOM. ................. : TR-1A Number ................... : [id number] Stay type ............. : E/R Discharge Date......... ... : 10/31/19 Admit Date ....... .. : 10/31/19 Admit Phys .................... : COONEYNORM Date of ....... : 2000 Family Phys ................... : UNKNOWN Phone .................. : [phone] Age ................................ : 19 Film# .................. .:[id number] Sex ................................. : M Unsigned transcriptions are preliminary reports and do not represent a medical or legal document [place] [id number] COMPLETE:10/31/19 14:12 KBO [id number] Reason(s): Pain RIGHT ANKLE X-RAY: 4-VIEWS INDICATION: [...] rce(s) Supporting Document(s) ID Date Data Source [id number] 10/31/2019 01:12:00 PM EDT [facility] 1 OrderSheet [facility] Emergency Department [address] [place] [address] Phone #: ext- [phone] 10/31/2019 13:07 Patient: [...] (21:28 10/31/2019)][Electronically locked by Alda Guzman R.N. (14:10/31/2019)] Name Value Range Interpretation Code Description Data Jasmin rce(s) Supporting Document(s) ID Date Data Source [id number] 10/31/2019 01:12:00 PM EDT [facility] 1 Medication Reconciliation Report [facility] Emergency Department [address] [place] [address] Phone #: ext- [phone] 10/31/2019 13:07 Patient: DEMARIO MERRITT Sex: M [...] Name Value Range Interpretation Code Description Data [facility](s) Supporting Document(s) ID Date Data Source [id number] 10/31/2019 01:12:00 PM EDT [facility] 1 Medication Administration Record [facility] Emergency Department [address] [place] [address] Phone #: ext- [phone] 10/31/2019 13:07 Patient: DEMARIO MERRITT Sex: M : 2000 Age: 19yWeight: 86.1 kgHeight/Length: 67 inBMI: 29.8ALLERGIES: Shellfish-derived Products Date/Time Medication Administered Medication OrderedGiven IBUPROFEN [PO] Ibuprofen 800 mg PO X1 dose: 82134:38 10/31/2019 Dose: 800 mg Tablets PO mg (NOW x1)Alda Guzman R.N. Name Value Range Interpretation Code Description Data Jasmin rce(s) Supporting Document(s) ID Date Data Source [id number] 10/31/2019 01:12:00 PM EDT [facility] 1 General Instructions [facility] Emergency Department [address] [place] [address] Phone #: ext- [phone] 10/31/2019 13:07 Patient: [...] joint together. There are 2 General Instructions [facility] Emergency Department [address] [place] [address] Phone #: ext- [phone] 10/31/2019 13:07 Patient: [...] the first 48 hours. 3 General Instructions [facility] Emergency Department [address] [place] [address] Phone #: ext- [phone] 10/31/2019 13:07 Patient: DEMARIO MERRITT Sex: M : 2000 Age: 19y Follow [...] thin towel or cloth. You may use [id number] pain medicine (NSAIDS or nonsteroidal anti-inflammatory drugs) [...] any of these occur: 4 General Instructions [facility] Emergency Department [address] [place] [address] Phone #: ext- [phone] 10/31/2019 13:07 Patient: [...] or is irritated You re-injure your ankle [id number] [employer]. [address] [place] [address]. All rights reserved. This information is not intended as asubstitute for professional medical care. Always follow your healthcare professional's instructions.Crutch WalkingCrutch adjustment 5 General Instructions [facility] Emergency Department [address] [place] [address] Phone #: ext- [phone] 10/31/2019 13:07 Patient: DEMARIO MERRITT Sex: M : 2000 Age: 19y Make sure the crutches you use are adjusted to fit you. When you stand,there should be room to fit 2 to 3 fingers between the top of the crutch and your armpit. Your elbowshould be slightly bent when holding the hand supervisor patching. When your arms hang down, the crutch handleshould be at the top of your hip.Crutch walkingPlace the crutches forward about 1 foot in front of you. The crutches should be a little farther apartthan your body. Lean your weight forward as you push down on the hand supervisor patching. Make sure yourweight is on your hands and your strong leg, not your armpits. Let your body swing forward, landingon the strong leg. Move the crutches forward again. The crutch and your injured leg should movetogether.Going up steps with no handrails(Up with the good leg) With both crutches (under each armpit) on the same step as your feet, push down on the hand supervisor patching. 6 General Instructions [facility] Emergency Department [address] [place] [address] Phone #: ext [phone] 10/31/2019 13:07 Patient: DEMARIO MERRITT Sex: M [...] your feet, push down on the hand supervisor patching. Keep your weight evenly balanced on the [...] opposite side. Push down on the hand supervisor patching. Balancing with very light pressure on the [...] under your armpit on 7 General Instructions [facility] Emergency Department [address] [place] [address] Phone #: ext- [phone] 10/31/2019 13:07 Patient: VALENTINO MERRITTSHIRA Jensen Sex: M : 2000 Age: 19y the opposite side. Push down on the hand supervisor patching. Balance your weight evenly on the crutches, [...] the same way when going down stairs. [id number] [employer]. [address] [place] [address]. All rights reserved. This information is not [...] sure you recover correctly. 8 General Instructions [facility] Emergency Department [address] [place] [address] Phone #: ext- [phone] 10/31/2019 13:07 Patient: [...] such as nicks or tears. Follow the senior nuclear medicine technologist's or provider's instructions on how to clean [...] blisters, infection, or irritation. 9 General Instructions [facility] Emergency Department [address] [place] [address] Phone #: ykl- [phone] 10/31/2019 13:07 Patient: DEMARIO MERRITT Sex: M [...] cast. The splint or cast gets wet. [id number] [employer]. [address] [place] [address], [place] [address]. All rights reserved. This information is not intended as asubstitute for professional medical care. Always follow your healthcare professional's instructions. You have been given the following additional information: Ankle Sprain (Adult) Crutch Walking Splints and Casts(Electronically signed by CHELSEA Raymond 10/31/2019 21:28) Name Value Range Interpretation Code Description Data Jasmin rce(s) Supporting Document(s) ID Date Data Source [id number] 10/31/2019 01:12:00 PM EDT [facility] 1 Clinical Report - Nurses [facility] Emergency Department [address] [place] [address] Phone #: ext- [phone] 10/31/2019 13:07 Patient: [...] or confirmed signs of infection present. --13:146 Jeny, August, R.N.13:11 10/31/19. BP: 137/67. MAP: 90. HR: 76. RR: 18. O2 saturation: 96%. Temp: 98.1 F (oral). Painlevel now: 4/10. --13:14 10/31/19 Jyoti, August, R.N.Weight: 86.1 kg stated. Height/Length: 67 inches Per Patient. BMI: 29.8. --13:09 10/31/19 Jeny, August, R.N.MedicationsNone. --13: 11 10/31/19August, R.N.AllergiesShellfish-derived Products. --13:11 10/31/19August, R.N.PROBLEMS:no known problems.ADDITIONAL SURGERIES:Shoulder Surgery (Rajat). --13:12 10/31/19 Jyoti, August, R.N.HistorySOCIAL HX: Never smoker. No alcohol [...] yourself?" and 2 Clinical Report - Nurses [facility] Emergency Department [address] [place] [address] Phone #: ext- [phone] 10/31/2019 13:07 Patient: [...] skin integrity risk identified. --13:14 10/31/19 Claudine Montes RGeorge. Interventions To treatment room. --13:14 10/31/19 Claudine Montes R.N.PHYSICAL ASSESSMENTTo room via wheelchair.GENERAL / NEURO [...] physician and PA notified. 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 --13:156 JyotiAugustJeannette 13:38 10/31/2019 Ibuprofen PO Tablets 800 mg given. Allergies verified and confirmed 5 rights. Information reviewed with patient including reason for taking this medication, signs of allergic reaction and precautions. Verbalizes understanding. --13:38 10/31/19 Alda Guzman R.N. Patient transported to radiology by wheelchair with assistant professor of radiology. --13:58 10/31/19 Alda Guzman R.N. Patient returned from radiology by wheelchair with assistant professor of radiology. --14:05 10/31/19 Alda Guzman R.N. The patient reports no complaints and he is calm and resting quietly. Patient waiting for radiology results. --14:05 10/31/19 Alda Guzman R.N. late entry - 14:15 10/31/19. Medium air splint applied to right ankle. Distal pulses intact, sensation intact 3 Clinical Report - Nurses [facility] Emergency Department [address] [place] [address] Phone #: ext- [phone] 10/31/2019 13:07 Patient: DEMARIO MERRITT Sex: M [...] F. Pain level now 08/03. --14:17 10/31/19 Rembert system administration manager, Leonidas, ER Tech1 Departure time: late entry - 14:15 10/31/2019. Condition at departure: stable. ( Pt refused crutches). No learning barriers present. Discharge instructions provided and reviewed with the patient. Reviewed warnings (please see paper copy). Reviewed splint care instructions. Patient verbalized understanding. Written instructions provided in Wallisian. The patient was discharged by the physician application assistant. He was discharged home and accompanied by flat breakdown processor. He left ambulatory and via private vehicle. Patient driving. --14:21 10/31/19 Alda Guzman R.N.Locked/Released at 10/31/2019 14:21 by Alda Guzman R.N. Name Value Range Interpretation Code Description Data Jasmin rce(s) Supporting Document(s) ID Date Data Source [id number] 10/31/2019 01:12:00 PM EDT [facility] 1 Clinical Report - Physicians/Mid Levels [facility] Emergency Department [address] [place] [address] Phone #: ext- [phone] 10/31/2019 13:07 Patient: DEMARIO MERRITT Sex: M : 2000 Age: 19y Time [...] saturation: 96%. Temp: 98.1 F.Pain level now: 10. Have been reviewed as normal. Oxygen saturation normal.Appearance: Alert. Oriented X3. No acute distress.Head: Head atraumatic.Eyes: Pupils equal, round and reactive to light. Eyes normal inspection.ENT: Ears normal. Nose normal. Pharynx normal.Neck: Normal inspection.CVS: Normal heart rate.Respiratory: No respiratory distress.Abdomen: No visible injury. 2 Clinical Report - Physicians/[facility] Emergency Department [address] [place] [address] Phone #: ext- [phone] 10/31/2019 13:07 Patient: DEMARIO MERRITT Sex: M [...] patient. 3 Clinical Report - Physicians/Mid Levels [facility] Emergency Department [address] [place] [address] Phone #: ext- [phone] 10/31/2019 13:07 [id number] Sex: M : 2000 Age: 19y(Electronically signed by CHELSEA Raymond 10/31/2019 21:28) Name Value Range Interpretation Code Description Data Jasmin rce(s) Supporting Document(s) Procedure
== END 2020-06-24 16:11 | disposition home or self-care (01) ==
LOC: M ED 15:11
DX: M54.5 Low back pain (principal); K21.9 Gastro-esophageal reflux disease without esophagitis; Z79.899 Other long term (current) drug therapy